=== PATIENT | male | born 1980 | race Caucasian/White ===

== ENCOUNTER → 2018-06-29 | Outpatient (CLI) | payer OTHER ==
[~2018-06-29] VITALS: Ht 177.8 cm; Wt 108.2 kg
[2018-06-29] VITALS (9 sets, daily range): BP systolic 132–150; BP diastolic 70–98; PULSE 57–71
[~2018-06-29] MED LIST: LOPRESSOR100 MG PO; NORVASC 10MG10 MG PO; PRILOSEC10 MG PO
[2018-06-29 07:06] LABS: INR 1.1 (0.8-3.0); PROTHROMBIN TIME 12.7 SECONDS (9.7-12.8)
== END ==
LOC: COL.RAD 06:30
PROVIDERS: Radiology Diagnostic Radiology
DX: B19.20 Unspecified viral hepatitis C without hepatic coma (principal); K74.0 Hepatic fibrosis
CPT/HCPCS: J2250; J3010